=== PATIENT | female | born 1995 | race Caucasian/White ===

== ENCOUNTER 2018-10-07 06:21 | Emergency (ER) | payer BC ==
[~2018-10-07] VITALS: Ht 162.6 cm; Wt 48.6 kg
[2018-10-07 06:38] VITALS: BP 146/91
[2018-10-07 07:24] LABS: URINE HCG NEGATIVE (NEG)
[2018-10-07 07:29] LABS: CLARITY,URINE CLEAR (Clear); COLOR,URINE YELLOW (Yellow); GLUCOSE, URINE NEGATIVE (Neg); KETONES,URINE NEGATIVE (Neg); LEUKOCYTE ESTERASE ,URINE NEGATIVE (Neg); NITRITES, URINE NEGATIVE (Neg); OCCULT BLOOD,URINE NEGATIVE (Neg); PH,URINE 6.5 (4.8-8.0); PROTEIN,URINE NEGATIVE (Neg); UROBILINOGEN,URINE 0.2 E.U/dL (0.2-1.0)
[2018-10-07 07:36] LABS: URINE AMPHETAMINE SCREEN NEGATIVE (Neg); URINE BARBITUATE SCREEN NEGATIVE (Neg); URINE BENZODIAZEPINES SCREEN NEGATIVE (Neg); URINE CANNABINOID SCREEN NEGATIVE (Neg); URINE COCAINE SCREEN NEGATIVE (Neg); URINE METHADONE SCREEN NEGATIVE (Neg); URINE OPIATE SCREEN NEGATIVE (Neg); URINE PHENCYCLIDINE SCREEN NEGATIVE (Neg)
[2018-10-07 07:38] LABS: UA COLLECTION TYPE CLN CATCH MIDSTREAM
--- NOTE | 2018-10-07 08:35 | NUR ---
pt states, spent the night with boyfriend in a hotel room and she woke up in another room with just her panties and bra on, cant remember anything. boyfriend told her he went to [employer] to get something to eat and ran into old family friends. she states, he got there phone number but wouldnt give it to her. he found her in another room because the curtains were open and saw her thru the window. went to get security intern.
== END 2018-10-07 08:45 | disposition home or self-care (01) ==
LOC: ER 06:23
DX: R41.82 Altered mental status, unspecified (principal); Z88.2 Allergy status to sulfonamides; Z88.1 Allergy status to other antibiotic agents
CPT/HCPCS: 80305; 81003; 81025; 99283